=== PATIENT | male | born 1970 | race Caucasian/White ===

== ENCOUNTER 2016-11-12 07:42 | Emergency (ER) | payer BC ==
[2016-11-12 07:47] VITALS: BP 140/91; PULSE 68; RESP 16; TEMP 97.8
[2016-11-12] MEDS ORDERED: DOCUSATE ORAL SOLN 100 MG/10 ML CUP PO STA (08:16)
--- NOTE | 2016-11-12 08:30 | ED ---
ENT HPI - General Chief complaint: ENT Stated complaint: Ear pain Time Seen by Provider: 11/12/16 08:07 Source: patient, RN notes reviewed Mode of arrival: ambulatory Limitations: no limitations - History of Present Illness Initial comments: 38-year-old male presents to the emergency Department chief complaint of right ear being plugged. Patient states he went to clean at this morning since he cleaned it has been plugged. Patient states he has decreased hearing out of that ear. It feels muffled. Patient denies any pain or discomfort with this. Patient states he is not currently having any other symptoms at this time. Patient denies any recent fever, chills, shortness of breath, chest pain, back pain, abdominal pain, nausea vomiting, numbness or tingling, dysuria or hematuria, constipation or diarrhea, headaches or visual changes, or any other current symptoms. - Related Data Allergies Allergy/AdvReac Type Severity Reaction Status Date / Time No Known Allergies Allergy Verified 11/12/16 07:47 Review of Systems ROS Statement: Those systems with pertinent positive or pertinent negative responses have been documented in the HPI. ROS Other: All systems not noted in ROS Statement are negative. Past Medical History Past Medical History: No Reported History History of Any Multi-Drug Resistant Organisms: None Reported Past Surgical History: Orthopedic Surgery Additional Past Surgical History / Comment(s): right finger Past Psychological History: No Psychological Hx Reported Smoking Status: Never smoker Past Alcohol Use History: None Reported Past Drug Use History: None Reported General Exam Limitations: no limitations General appearance: alert, in no apparent distress Head exam: Present: atraumatic, normocephalic, normal inspection Eye exam: Present: normal appearance, PERRL, EOMI. Absent: scleral icterus, conjunctival injection, periorbital swelling ENT exam: Present: normal exam, mucous membranes moist. Absent: TM's normal bilaterally (Patient appears to have serum impaction to the right ear with a nonerythematous left tympanic membrane.) Neck exam: Present: normal inspection. Absent: tenderness, meningismus, lymphadenopathy Respiratory exam: Present: normal lung sounds bilaterally. Absent: respiratory distress, wheezes, rales, rhonchi, stridor Cardiovascular Exam: Present: regular rate, normal rhythm, normal heart sounds. Absent: systolic murmur, diastolic murmur, rubs, gallop, clicks Neurological exam: Present: alert, oriented X3 Psychiatric exam: Present: normal affect, normal mood Skin exam: Present: warm, dry, intact, normal color. Absent: rash Course Vital Signs 11/12/16 07:45 Temperature 97.8 F Pulse Rate 68 Respiratory 16 Rate Blood Pressure 140/91 O2 Sat by Pulse 98 Oximetry Procedures - Ear Wax Removal Right Ear Cerumenolytic Used: Colace Ear Canal Irrigated by: Ear Canal Irrigated With: warm saline using syringe/angiocath Results: Re-examined: cerumen removed completely TM Visible: TM(s) intact, normal appearance Patient Tolerated Procedure: well Complications: no problems Medical Decision Making - Medical Decision Making 38-year-old male presents for right-sided serum impaction. This time patient underwent serum impaction removal and patient's symptoms are better. Patient's abdomen was reassessed and does appear to be within normal limits. This time we did discuss close follow-up return parameters all questions. Patient stated that he understood needs. This plan. He will be discharged. Disposition Clinical Impression: Right ear impacted cerumen Disposition: HOME SELF-CARE Condition: Stable Instructions: Cerumen Impaction (ED) Additional Instructions: Please use medication as discussed. Please follow up with family doctor if symptoms have not improved over the next two days. Please return to the emergency room if your symptoms increase or worsen or for any other concerns. Referrals: Navin Bach MD [Primary Care Provider] - 1-2 days Time of Disposition: 08:32
== END 2016-11-12 08:36 | disposition home or self-care (01) ==
LOC: EC 07:42
DX: H61.21 Impacted cerumen, right ear (principal)
CPT/HCPCS: 69209; 99282

== ENCOUNTER 2022-02-15 00:18 | Emergency (ER) | payer BC ==
[2022-02-15] MEDS ORDERED: KETOROLAC 15 MG/ML 1 ML VIAL IVP STA (00:34)
[2022-02-15 00:36] VITALS: RESP 18; TEMP 97.8
[2022-02-15] MEDS ORDERED: FAMOTIDINE 20 MG/2 ML VIAL IV STA (00:38)
--- NOTE | 2022-02-15 00:38 | ED ---
Abdominal Pain HPI - General Chief Complaint: Abdominal Pain Stated Complaint: abd pain Time Seen by Provider: 02/15/22 00:34 Source: patient, RN notes reviewed Mode of arrival: ambulatory - History of Present Illness Initial Comments: This is a 51 year old male who presents to the emergency department for abdominal pain. Symptoms started 2 hours prior to arrival. States that they are in the mid to upper aspect of his abdomen. Denies any nausea or vomiting. He does have a history of acid reflux, which he does not treat with any medication. He does report feeling somewhat bloated. Denies any changes in urinary or bowel habits. Denies any fevers, chills, sore throat, cough, dyspnea, chest pain, palpitations, nausea, vomiting, diarrhea, back pain, or headaches. MD Complaint: abdominal pain Location: RUQ - Related Data Previous Rx's Medication Instructions Recorded Famotidine 40 mg PO QAM #14 tablet 02/15/22 Allergies Allergy/AdvReac Type Severity Reaction Status Date / Time No Known Allergies Allergy Verified 02/15/22 00:36 Review of Systems ROS Statement: Those systems with pertinent positive or pertinent negative responses have been documented in the HPI. ROS Other: All systems not noted in ROS Statement are negative. Past Medical History Past Medical History: No Reported History History of Any Multi-Drug Resistant Organisms: None Reported Past Surgical History: Orthopedic Surgery Additional Past Surgical History / Comment(s): right finger Past Psychological History: No Psychological Hx Reported Smoking Status: Never smoker Past Alcohol Use History: None Reported Past Drug Use History: None Reported General Exam General appearance: alert, in distress Respiratory exam: Present: normal lung sounds bilaterally. Absent: respiratory distress, wheezes, rales, rhonchi, stridor Cardiovascular Exam: Present: regular rate, normal rhythm, normal heart sounds. Absent: systolic murmur, diastolic murmur, rubs, gallop, clicks GI/Abdominal exam: Present: soft, tenderness (Diffuse), normal bowel sounds. Absent: distended Neurological exam: Present: alert, oriented X3, CN II-XII intact Psychiatric exam: Present: normal affect, normal mood Skin exam: Present: warm, dry, intact, normal color. Absent: rash Course Vital Signs 02/15/22 02/15/22 00:34 03:56 Temperature 97.8 F 97.8 F Pulse Rate 81 79 Respiratory 18 18 Rate Blood Pressure 139/85 135/78 O2 Sat by Pulse 98 98 Oximetry Medical Decision Making - Medical Decision Making This is a 51-year-old male who presents to the emergency department for abdominal pain. Lab work was nonactionable. EKG reveals no signs of ischemia. Computed tomography scan of the abdomen and pelvis obtained revealing no acute irregularities. Patient was given Pepcid, Toradol, fluids, and a GI cocktail. He reported significant improvement in his symptoms following medication administration. Symptoms are likely related to gastritis or peptic ulcer. Prescription for Pepcid sent to the pharmacy, he is advised to take this daily for the next 2 weeks. If he finds this beneficial, he can purchase it [id number] as well. Return precautions reviewed in depth, the patient is instructed to return to the emergency department with any new, worsening, or concerning symptoms. Patient verbalized understanding. This case was discussed in detail with the attending ED physician. Presentation, findings, and treatment plan discussed in detail as well. - Lab Data Result diagrams: 02/15/22 00:54 02/15/22 00:54 Lab Results 02/15/22 02/15/22 02/15/22 Range/Units 00:54 00:54 01:43 WBC 6.0 (3.8-10.6) k/uL RBC 5.12 (4.30-5.90) m/uL Hgb 15.3 (13.0-17.5) gm/dL Hct 44.9 (39.0-53.0) % MCV 87.7 (80.0-100.0) fL MCH 29.8 (25.0-35.0) pg MCHC 34.0 (31.0-37.0) g/dL RDW 12.7 (11.5-15.5) % Plt Count 173 (150-450) k/uL MPV 8.5 Neutrophils % 58 % Lymphocytes % 26 % Monocytes % 6 % Eosinophils % 8 % Basophils % 1 % Neutrophils # 3.5 (1.3-7.7) k/uL Lymphocytes # 1.5 (1.0-4.8) k/uL Monocytes # 0.3 (0-1.0) k/uL Eosinophils # 0.5 (0-0.7) k/uL Basophils # 0.0 (0-0.2) k/uL Sodium 139 (137-145) mmol/L Potassium 4.0 (3.5-5.1) mmol/L Chloride 105 (98-107) mmol/L Carbon Dioxide 22 (22-30) mmol/L Anion Gap 12 mmol/L BUN 15 (9-20) mg/dL Creatinine 0.82 (0.66-1.25) mg/dL Est GFR (CKD-EPI)AfAm >90 (>60 ml/min/1.73 sqM) Est GFR (CKD-EPI)NonAf >90 (>60 ml/min/1.73 sqM) Glucose 115 H (74-99) mg/dL Calcium 9.5 (8.4-10.2) mg/dL Total Bilirubin 0.4 (0.2-1.3) mg/dL AST 36 (17-59) U/L ALT 38 (4-49) U/L Alkaline Phosphatase 64 (38-126) U/L Total Protein 7.2 (6.3-8.2) g/dL Albumin 4.5 (3.5-5.0) g/dL Amylase 48 (30-110) U/L Lipase 60 (23-300) U/L Urine Color Light Yellow Urine Appearance Clear (Clear) Urine pH 6.0 (5.0-8.0) Ur Specific [place] 1.029 (1.001-1.035) Urine Protein Negative (Negative) Urine Glucose (UA) Negative (Negative) Urine Ketones Negative (Negative) Urine Blood Negative (Negative) Urine Nitrite Negative (Negative) Urine Bilirubin Negative (Negative) Urine Urobilinogen <2.0 (<2.0) mg/dL Ur Leukocyte Esterase Negative (Negative) - EKG Data EKG Comments: Sinus rhythm. Ventricular rate 64 bpm, VA interval 176 ms, QRS duration 121 ms, QTC 380 ms. - Radiology Data Radiology results: report reviewed, image reviewed Disposition Clinical Impression: Gastritis Disposition: HOME SELF-CARE Instructions (If sedation given, give patient instructions): Gastritis (ED) Additional Instructions: Return to the emergency department with any new, worsening, or concerning symptoms. Take the pepcid daily for the next 2 weeks. If you find it beneficial, you can purchase it [id number] to continue taking it. Follow up with your primary care provider in 1-2 days. Prescriptions: Famotidine 40 mg PO QAM #14 tablet Is patient prescribed a controlled substance at d/c from ED?: No Referrals: Tona Daugherty MD [Primary Care Provider] - 1-2 days
[2022-02-15] MEDS ORDERED: SODIUM CHLORIDE 0.9% 1,000 ML IV STA (00:39)
[2022-02-15 01:10] LABS: ALT 38 U/L (4-49); AST 36 U/L (17-59); African American GFR (CKD) >90 (>60 ml/min/1.73 sqM); Albumin 4.5 g/dL (3.5-5.0); Alkaline Phosphatase 64 U/L (38-126); Amylase 48 U/L (30-110); Anion Gap 12 mmol/L; Blood Urea Nitrogen 15 mg/dL (9-20); Calcium 9.5 mg/dL (8.4-10.2); Carbon Dioxide 22 mmol/L (22-30); Chloride 105 mmol/L (98-107); Glucose 115 mg/dL (74-99); Lipase 60 U/L (23-300); Non-African American GFR(CKD) >90 (>60 ml/min/1.73 sqM); Sodium 139 mmol/L (137-145); Total Bilirubin 0.4 mg/dL (0.2-1.3); Total Protein 7.2 g/dL (6.3-8.2)
[2022-02-15 01:13] LABS: Basophils % (A) 1 %; Eosinophils # (A) 0.5 k/uL (0-0.7); Eosinophils % (A) 8 %; HCT 44.9 % (39.0-53.0); HGB 15.3 gm/dL (13.0-17.5); Lymphocytes # (A) 1.5 k/uL (1.0-4.8); Lymphocytes % (A) 26 %; MCH 29.8 pg (25.0-35.0); MCV 87.7 fL (80.0-100.0); Mean Platelet Volume 8.5; Monocytes # (A) 0.3 k/uL (0-1.0); Monocytes % (A) 6 %; Neutrophils # (A) 3.5 k/uL (1.3-7.7); Neutrophils % (A) 58 %; Platelet Count 173 k/uL (150-450); RBC 5.12 m/uL (4.30-5.90); RDW 12.7 % (11.5-15.5)
--- NOTE | 2022-02-15 01:47 | CT ---
EXAMINATION TYPE: CT abdomen pelvis w con DATE OF EXAM: 02/14/2022 COMPARISON: None HISTORY: Abdominal pain, acute, nonlocalized. no prior on PACS CT DLP: 1786.2 mGycm Automated exposure control for dose reduction was used. CONTRAST: Performed with IV Contrast, patient injected with 100ml mL of Isovue 370. Images obtained from the diaphragm to the floor the pelvis with the IV contrast. Lung bases show mild subsegmental atelectasis. Heart size is normal. No pericardial effusion. Liver a nd spleen are intact. Gallbladder appears normal. The bile ducts are not dilated. No pancreatic mass. The stomach is intact. There is no adrenal mass. Kidneys show satisfactory contrast opacification. No hydronephrosis. Ureter s are not dilated. No retroperitoneal adenopathy. The bladder distends smoothly. No inguinal hernia. No free fluid in the pelvis. There is no mesenteric edema. No ascites or free air. No sign of a bowel obstruction. Appendix extend s laterally and appears normal. There are a few large bowel diverticula. No diverticulitis. The lumbar spine is intact. No compression fracture. Posterior elements are intact. The bony pelvis i s intact. The hip joints are intact. IMPRESSION: Normal appendix. Mild subsegmental atelectasis at the lung bases. No acute abnormality within the abd omen and pelvis.
[2022-02-15 01:51] LABS: Appearance,Urine Clear (Clear); Bilirubin,Urine Negative (Negative); Blood,Urine Negative (Negative); Color,Urine Light Yellow; Glucose,Urine (UA) Negative (Negative); Ketones,Urine Negative (Negative); Leukocyte Esterase,Urine Negative (Negative); Nitrite,Urine Negative (Negative); Protein,Urine Negative (Negative); Specific Gravity,Urine 1.029 (1.001-1.035); Urobilinogen,Urine <2.0 mg/dL (<2.0)
[2022-02-15] MEDS ORDERED: MAG HYDROX/AL HYDROX/SIMETH 30 ML, HYOSCYAMINE ELIXIR 10 ML PO STA ×2 (01:57)
[2022-02-15 03:58] VITALS: BP 135/78; PULSE 79
== END 2022-02-15 03:57 | disposition home or self-care (01) ==
LOC: EC 00:18
DX: K29.70 Gastritis, unspecified, without bleeding (principal)
CPT/HCPCS: 36415; 93005; 80053; 82150; 83690; 85025; 81003; 74177; 99284; 96374; 96361; 96375; J1885; Q9967

== ENCOUNTER → 2022-03-01 | Outpatient (CLI) | payer BC ==
--- NOTE | 2022-03-01 16:03 | US ---
EXAMINATION TYPE: US mass soft tissue chest/back DATE OF EXAM: 03/01/2022 COMPARISON: NONE CLINICAL HISTORY: R22.2 LOCALIZED SWELLING MASS AND LUMP. Pt states superficial palpable lump left f lank x many years, pt states it is mobile and soft- has recently gotten painful Technique: grayscale and color Doppler imaging of the left flank. Findings: hyperechoic mass in the left flank in area of pt's palpable lump= 1.9 x 1.0 x 1.8 cm no organizing fluid. IMPRESSION: Left flank mass was consistent with lipomatous mass and likely a lipoma.
== END | disposition home or self-care (01) ==
LOC: RADUSWWP 14:51
PROVIDERS: ATTEND Family Medicine
DX: R22.2 Localized swelling, mass and lump, trunk (principal)